=== PATIENT | male | born 1935 | race Caucasian/White ===

== ENCOUNTER 2022-03-27 18:31 | Inpatient (IN) | payer OTHER, MEDICAID ==
[~2022-03-27] VITALS: Ht 162.6 cm; Wt 40.8 kg
[2022-03-27 18:47] VITALS: BP_SYST 131
[2022-03-27] MEDS ORDERED: NITROGLYCERIN 1 INCH (GM) OINT. TP ONE (19:00)
[2022-03-27] MEDS ORDERED: FUROSEMIDE 40 MG/4 ML VIAL IVP ONE (19:15)
[2022-03-27 19:19] LABS: HEMATOCRIT 35.8 % (36-54); HEMOGLOBIN 11.5 g/dL (14.0-18.0); MEAN CORPUSCULAR HEMOGLOBIN 34 pg (27-31); MEAN CORPUSCULAR HGB CONC 32 % (32-36); MEAN CORPUSCULAR VOLUME 105 fL (79.0-98.0); PLATELET COUNT (AUTO) 112 K/uL (130-430); RED CELL DISTRIBUTION WIDTH 19.4 % (9.0-15.0); WHITE BLOOD COUNT (AUTO) 3.2 K/uL (4.8-10.8)
[2022-03-27 19:33] LABS: CORRECTED WHITE BLOOD COUNT 2.9 K/uL (4.5-11.0)
[2022-03-27 19:34] LABS: BAND % (MANUAL) 59 % (0-6); BASOPHILS % (MANUAL) 0 % (0-2); EOSINOPHILS % (MANUAL) 0 % (0-7); LYMPHOCYTES % (MANUAL) 13 % (20-46); METAMYELOCYTES % 1 % (0-0); MONOCYTES % (MANUAL) 2 % (0-11)
[2022-03-27 19:44] LABS: ANION GAP 14 (5-15); CALCIUM 8.9 mg/dL (8.4-11.0); GLUCOSE 118 mg/dL (70-99); POTASSIUM 4.4 mmol/L (3.5-5.1); UREA NITROGEN, BLOOD 85 mg/dL (8-21)
[2022-03-27 19:45] LABS: CREATININE 2.84 mg/dL (0.55-1.30)
[2022-03-27 19:53] LABS: ALANINE AMINOTRANSFERASE 38 U/L (12-78); ALBUMIN 2.3 g/dL (3.4-4.8); ASPARTATE AMINOTRANSFERASE 34 U/L (10-37); TOTAL BILIRUBIN 2.4 mg/dL (0.0-1.0)
[2022-03-27 19:56] LABS: CHLORIDE 121 mmol/L (98-107)
[2022-03-27] MEDS ORDERED: NOREPINEPHRINE BITARTRATE 4 MG in NS 246 ML IV ONE (20:00)
[2022-03-27] MEDS ORDERED: NOREPINEPHRINE 4 MG/4 ML VIAL IV ONE (20:05)
[2022-03-27] MEDS ORDERED: NOREPINEPHRINE BITARTRATE 4 MG in NS 246 ML IV PRN (20:45)
[2022-03-27] MEDS ORDERED: dilTIAZem HCL IVP 5 MG/ML VIAL IVP ONE (21:15)
[2022-03-27] MEDS ORDERED: MAGNESIUM SULFATE 50 ML IV ONE (21:15)
[2022-03-27] MEDS ORDERED: D5NS 1,000 ML IV SCH (23:30)
[2022-03-27] MEDS: PIPERACILLIN/TAZO 2.25G/DEX-IS 50 ML IV SCH (23:45)
[2022-03-27] MEDS ORDERED: ALBUMIN HUMAN 25% 100 ML IV SCH (23:45)
[2022-03-27] MEDS ORDERED: PANTOPRAZOLE SODIUM 40 MG/VIAL (PROTONIX) IVP SCH (23:45)
[2022-03-27] MEDS: LevALBUTEROL HCL 1.25 MG/0.5 ML *CONC.* VIAL.NEB (XOPENEX CONC.) INH SCH (23:45)
[2022-03-27] MEDS ORDERED: LevALBUTEROL HCL 1.25 MG/0.5 ML *CONC.* VIAL.NEB (XOPENEX CONC.) INH PRN (23:45)
[2022-03-27] MEDS ORDERED: ACETAMINOPHEN 650 MG SUPP.RECT RC PRN (23:45)
[2022-03-28] MEDS: PIPERACILLIN/TAZO 2.25G/DEX-IS 50 ML IV SCH
[2022-03-28] MEDS ORDERED: NOREPINEPHRINE 4 MG/4 ML VIAL IV ONE ×3 (00:02→02:58)
[2022-03-28] MEDS: methylPREDNISolone SOD SUCC/PF 62.5 MG/ML VIAL IVP SCH ×2 (00:08→01:12)
[2022-03-28 00:29] VITALS: BP_SYST 134
[2022-03-28] MEDS: LevALBUTEROL HCL 1.25 MG/0.5 ML *CONC.* VIAL.NEB (XOPENEX CONC.) INH SCH (01:00)
[2022-03-28] MEDS ORDERED: PIPERACILLIN/TAZOBACTAM 2.25 GM VIAL IV ONE (01:41)
[2022-03-28 02:11] VITALS: BP_SYST 148
[2022-03-28 03:11] VITALS: BP_SYST 119
[2022-03-28] MEDS ORDERED: SODIUM BICARBONATE 8.4% JECT 50 MEQ/50 ML SYRINGE ONE (04:15)
[2022-03-28] MEDS ORDERED: SODIUM BICARBONATE 8.4% VIAL 150 MEQ in D5W 1,000 ML IV SCH (04:15)
[2022-03-28 06:57] VITALS: BP_SYST 78
[2022-03-28] MEDS ORDERED: ENOXAPARIN SODIUM 30 MG/0.3 ML SYRINGE SUBCUT SCH (21:00)
== END 2022-03-28 04:39 | DRG 193 ==
LOC: SED 18:31 → SIC 20:43
PROVIDERS: ADMIT Family Medicine; ATTEND Family Medicine
PROC: 5A09357 Assistance with Respiratory Ventilation, Less than 24 Consecutive Hours, Continuous Positive Airway Pressure (ICD-10-PCS; principal; 2022-03-27)
DX: J18.9 Pneumonia, unspecified organism (principal); I50.23 Acute on chronic systolic (congestive) heart failure; J96.01 Acute respiratory failure with hypoxia; N17.9 Acute kidney failure, unspecified; E44.0 Moderate protein-calorie malnutrition; Z68.1 Body mass index [BMI] 19.9 or less, adult; J44.0 Chronic obstructive pulmonary disease with (acute) lower respiratory infection; I11.0 Hypertensive heart disease with heart failure; E86.0 Dehydration; E78.5 Hyperlipidemia, unspecified; Z20.822 Contact with and (suspected) exposure to COVID-19; I25.10 Atherosclerotic heart disease of native coronary artery without angina pectoris; F03.90 Unspecified dementia, unspecified severity, without behavioral disturbance, psychotic disturbance, mood disturbance, and anxiety; Z66 Do not resuscitate; Z95.1 Presence of aortocoronary bypass graft; Z87.891 Personal history of nicotine dependence; I46.9 Cardiac arrest, cause unspecified
CPT/HCPCS: 36415; 36600; 71045; 80053; 82803-TC; 83880; 84484; 85007; 85027; 87081; 93005; 94660; 96374; 96375; 99291; C9113; J1940; J2543; J2930; J3475; J3490; J7050; J7060